=== PATIENT | male | born 1940 | race Two or more races ===

== ENCOUNTER 2020-05-13 17:53 | Inpatient (IN) | payer MEDICARE ==
[~2020-05-13] VITALS: Ht 180.3 cm; Wt 84.5 kg
[2020-05-13] MEDS ORDERED: SODIUM CHLORIDE 0.9% 1000ML BAG (SEPSIS BOLUS) IV ONE (18:30)
[2020-05-13 18:52] LABS: HEMATOCRIT. 39.2 % (42.0-52.0); HEMOGLOBIN. 13.2 g/dL (14.0-18.0); MEAN CORPUSCULAR HEMOGLOBIN 30.6 pg (28.0-32.0); MEAN CORPUSCULAR VOLUME 90.6 fL (80.0-94.0); MEAN PLATELET VOLUME 8.2 fl (7.4-10.4); PLATELET 284 x1000/uL (130-400); RED BLOOD CELL COUNT 4.32 mill/uL (4.7-6.1); RED CELL DISTRIBUTION WIDTH 14.5 % (11.6-14.6)
[2020-05-13 19:04] LABS: CHLORIDE 104 mEq/L (98-107)
[2020-05-13 19:27] LABS: PLATELET ESTIMATE NORMAL
[2020-05-13 20:39] LABS: CLARITY URINE CLOUDY (CLEAR); COLOR URINE DARK YELLOW (YELLOW); KETONES URINE 1+ (NEGATIVE); LEUKOCYTE ESTERASE URINE NEGATIVE (NEGATIVE); NITRITE URINE NEGATIVE (NEGATIVE); OCCULT BLOOD URINE NEGATIVE (NEGATIVE); PROTEIN URINE 2+ (NEGATIVE); SPECIFIC GRAVITY URINE 1.024 (1.005-1.030)
[2020-05-13] MEDS ORDERED: DEXAMETHASONE 4MG/ML 1ML VIAL IV NR (20:45)
[2020-05-13] MEDS ORDERED: NITROGLYCERIN 0.4MG TABLET SL SL PRN (21:30)
[2020-05-13] MEDS ORDERED: CLONIDINE 0.1MG TABLET PO PRN (21:30)
[2020-05-13] MEDS ORDERED: DOCUSATE SODIUM 100MG CAPSULE PO PRN (21:30)
[2020-05-13] MEDS ORDERED: TRAMADOL 50MG TABLET PO PRN (21:30)
[2020-05-13] MEDS ORDERED: ACETAMINOPHEN 325MG TABLET PO PRN ×2 (21:30)
[2020-05-13] MEDS ORDERED: MAGNESIUM/ALUMINUM HYDROXIDE/SIMETHICONE 30ML UDC PO PRN (21:30)
[2020-05-13] MEDS ORDERED: GUAIFENESIN 200MG/10ML SUGAR FREE UDC PO PRN (21:30)
[2020-05-13] MEDS ORDERED: ZOLPIDEM TARTRATE 5MG TABLET PO PRN (21:30)
[2020-05-13] MEDS ORDERED: ALBUTEROL 6.7GM HFA INHALER ORI PRN (21:30)
[2020-05-13] MEDS ORDERED: ONDANSETRON HCL 4MG/2ML INJ IV PRN (21:30)
[2020-05-13 21:49] LABS: TOTAL IRON BINDING CAPACITY 189 ug/dL (250-450)
[2020-05-13] MEDS ORDERED: AZITHROMYCIN 500 MG in DEXT 5% WATER 250 ML IV SCH (22:00)
[2020-05-13] MEDS: FUROSEMIDE 40MG/4ML VIAL IVP SCH (22:01)
[2020-05-13 22:08] LABS: FOLIC ACID (FOLATE) SERUM 8.4 ng/mL (>5.38)
[2020-05-13] MEDS: GUAIFENESIN/DM 600MG/30MG ER TAB 12HR PO SCH (22:08)
[2020-05-13] MEDS ORDERED: CEFTRIAXONE 1,000 MG in DEXTROSE 5% WATER 50 ML IV SCH (23:00)
[2020-05-13 23:41] LABS: CREATINE KINASE 260 IU/L (39-308)
[2020-05-13 23:42] LABS: CREATINE KINASE MB FRACTION < 1.0 ng/mL (0.5-3.6)
[2020-05-14] MEDS ORDERED: IOHEXOL-300 100 ML BOTTLE ONE (05:24)
[2020-05-14 05:39] LABS: HEMATOCRIT. 39.3 % (42.0-52.0); HEMOGLOBIN. 13.1 g/dL (14.0-18.0); MEAN CORPUSCULAR HEMOGLOBIN 30.8 pg (28.0-32.0); MEAN CORPUSCULAR VOLUME 92.2 fL (80.0-94.0); MEAN PLATELET VOLUME 8.4 fl (7.4-10.4); PLATELET 274 x1000/uL (130-400); RED BLOOD CELL COUNT 4.26 mill/uL (4.7-6.1); RED CELL DISTRIBUTION WIDTH 14.7 % (11.6-14.6)
[2020-05-14 05:51] LABS: CHLORIDE 103 mEq/L (98-107)
[2020-05-14 06:02] LABS: CREATINE KINASE MB FRACTION < 1.0 ng/mL (0.5-3.6); LDL CHOLESTEROL 52 mg/dL (5-100); PHOSPHORUS 4.2 mg/dL (2.5-4.9)
[2020-05-14 06:03] LABS: CREATINE KINASE 223 IU/L (39-308); HDL CHOLESTEROL 53 mg/dL (40-59)
[2020-05-14] MEDS: BLOOD SUGAR DIAGNOSTIC STRIP TEST SCH ×4 (07:30→21:24)
[2020-05-14] MEDS: INSULIN LISPRO 100 UNITS/ML SUBCUT SCH ×4 (07:35→23:06)
[2020-05-14] MEDS: SPIRONOLACTONE 25MG TABLET PO SCH ×2 (09:00→23:02)
[2020-05-14] MEDS: FAMOTIDINE 20MG TABLET PO SCH ×2 (09:56→23:01)
[2020-05-14] MEDS: ZINC SULFATE 220 MG ( 50 ) CAPSULE PO SCH (09:56)
[2020-05-14] MEDS: ASCORBIC ACID 500 MG TABLET PO SCH ×2 (09:56→23:02)
[2020-05-14] MEDS: FUROSEMIDE 40MG/4ML VIAL IVP SCH ×2 (09:56→23:02)
[2020-05-14] MEDS: ASPIRIN 81MG EC TABLET PO SCH (09:56)
[2020-05-14] MEDS: GUAIFENESIN/DM 600MG/30MG ER TAB 12HR PO SCH ×2 (09:56→23:01)
[2020-05-14 13:02] LABS: PLATELET ESTIMATE NORMAL
[2020-05-14] MEDS ORDERED: AZITHROMYCIN 500 MG in DEXT 5% WATER 250 ML IV SCH (15:30)
[2020-05-14] MEDS: CEFTRIAXONE 1,000 MG in DEXTROSE 5% WATER 50 ML IV SCH (16:03)
[2020-05-14 21:36] VITALS: BP 160/70
[2020-05-14] MEDS ORDERED: T3 PO (22:16)
[2020-05-14] MEDS ORDERED: CEFD300C3 MT (22:18)
[2020-05-14] MEDS: ENOXAPARIN 40MG/0.4ML SYR SUBCUT SCH (23:04)
[2020-05-14 23:32] VITALS: BP 160/70
[2020-05-15] VITALS (21 sets, daily range): BP systolic 132–179; BP diastolic 68–95
[2020-05-15] MEDS: INSULIN LISPRO 100 UNITS/ML SUBCUT SCH ×4 (05:58→22:20)
[2020-05-15] MEDS: BLOOD SUGAR DIAGNOSTIC STRIP TEST SCH ×4 (06:20→21:00)
[2020-05-15] MEDS: FAMOTIDINE 20MG TABLET PO SCH ×2 (09:00→22:16)
[2020-05-15] MEDS: SPIRONOLACTONE 25MG TABLET PO SCH ×2 (09:00→22:19)
[2020-05-15] MEDS: FUROSEMIDE 40MG/4ML VIAL IVP SCH ×2 (09:00→22:15)
[2020-05-15] MEDS: ZINC SULFATE 220 MG ( 50 ) CAPSULE PO SCH (09:00)
[2020-05-15] MEDS: ASPIRIN 81MG EC TABLET PO SCH (09:00)
[2020-05-15] MEDS: DEXAMETHASONE 10 MG/ML VIAL IV SCH (09:00)
[2020-05-15] MEDS: GUAIFENESIN/DM 600MG/30MG ER TAB 12HR PO SCH (09:00)
[2020-05-15] MEDS: ASCORBIC ACID 500 MG TABLET PO SCH ×2 (09:00→22:16)
[2020-05-15 10:39] LABS: BG BASE EXCESS 0.4 mmol/L (-2.0-2.0); BG CARBOXYHEMOGLOBIN 0.1 % (0.5-1.5); BG DEOXYHEMOGLOBIN 8.7 % (0.0-5.0); BG FRACTION INSPIRED OXYGEN 99.8; BG METHEMOGLOBIN 0.3 % (0.0-1.5); BG OXYGEN SATURATION 91.3 % (92.0-98.5); BG OXYHEMOGLOBIN 90.9 % (94.0-97.0); BG PCO2 35.7 mmHg (35.0-45.0); BG PH 7.445 (7.350-7.450); BG PO2 59.2 mmHg (75.0-100.0); BG SAMPLE SITE LEFT RADIAL; BG TOTAL HEMOGLOBIN 14.4 g/dL (12.0-18.0); BG VENT MODE MASK - NRB
[2020-05-15] MEDS: DOXYCYCLINE HYCLATE 100MG CAPSULE PO SCH (22:17)
[2020-05-15] MEDS: ENOXAPARIN 40MG/0.4ML SYR SUBCUT SCH (22:21)
[2020-05-16] VITALS (29 sets, daily range): BP systolic 136–165; BP diastolic 59–83
[2020-05-16] MEDS: CEFTRIAXONE 1,000 MG in DEXTROSE 5% WATER 50 ML IV SCH (00:24)
[2020-05-16] MEDS: GUAIFENESIN/DM 600MG/30MG ER TAB 12HR PO SCH ×3 (00:24→21:40)
[2020-05-16] MEDS: BLOOD SUGAR DIAGNOSTIC STRIP TEST SCH ×4 (06:06→21:41)
[2020-05-16] MEDS: INSULIN LISPRO 100 UNITS/ML SUBCUT SCH ×4 (06:12→21:42)
[2020-05-16] MEDS: ALBUTEROL 6.7GM HFA INHALER ORI SCH ×3 (09:00→21:00)
[2020-05-16] MEDS: ZINC SULFATE 220 MG ( 50 ) CAPSULE PO SCH (09:13)
[2020-05-16] MEDS: FUROSEMIDE 40MG/4ML VIAL IVP SCH ×2 (09:13→21:40)
[2020-05-16] MEDS: DEXAMETHASONE 10 MG/ML VIAL IV SCH (09:13)
[2020-05-16] MEDS: ASCORBIC ACID 500 MG TABLET PO SCH ×2 (09:14→21:41)
[2020-05-16] MEDS: SPIRONOLACTONE 25MG TABLET PO SCH ×2 (09:14→21:40)
[2020-05-16] MEDS: CHOLECALCIFEROL (D3) 1000 UNIT TABLET PO SCH (09:14)
[2020-05-16] MEDS: FAMOTIDINE 20MG TABLET PO SCH ×2 (09:14→21:41)
[2020-05-16] MEDS: ASPIRIN 81MG EC TABLET PO SCH (09:14)
[2020-05-16] MEDS: DOXYCYCLINE HYCLATE 100MG CAPSULE PO SCH ×2 (09:16→21:41)
[2020-05-16 09:24] LABS: BG BASE EXCESS 2.1 mmol/L (-2.0-2.0); BG CARBOXYHEMOGLOBIN 0.7 % (0.5-1.5); BG DEOXYHEMOGLOBIN 5.9 % (0.0-5.0); BG FRACTION INSPIRED OXYGEN 100; BG METHEMOGLOBIN 0.5 % (0.0-1.5); BG OXYHEMOGLOBIN 92.9 % (94.0-97.0); BG PCO2 38.4 mmHg (35.0-45.0); BG PH 7.449 (7.350-7.450); BG PO2 67.2 mmHg (75.0-100.0); BG TOTAL HEMOGLOBIN 15.4 g/dL (12.0-18.0); BG VENT MODE MASK - NRB
[2020-05-16] MEDS: ENOXAPARIN 40MG/0.4ML SYR SUBCUT SCH (21:44)
[2020-05-17] VITALS (23 sets, daily range): BP systolic 118–159; BP diastolic 56–79
[2020-05-17 05:36] LABS: CHLORIDE 107 mEq/L (98-107)
[2020-05-17 05:37] LABS: HEMOGLOBIN. 14.5 g/dL (14.0-18.0); MEAN CORPUSCULAR HEMOGLOBIN 29.9 pg (28.0-32.0); MEAN CORPUSCULAR VOLUME 91.1 fL (80.0-94.0); MEAN PLATELET VOLUME 7.8 fl (7.4-10.4); PLATELET 492 x1000/uL (130-400); RED BLOOD CELL COUNT 4.83 mill/uL (4.7-6.1); RED CELL DISTRIBUTION WIDTH 14.6 % (11.6-14.6)
[2020-05-17] MEDS: BLOOD SUGAR DIAGNOSTIC STRIP TEST SCH ×4 (06:06→21:48)
[2020-05-17] MEDS: INSULIN LISPRO 100 UNITS/ML SUBCUT SCH ×4 (06:08→22:46)
[2020-05-17 08:45] LABS: PLATELET ESTIMATE INCREASED
[2020-05-17] MEDS: FAMOTIDINE 20MG TABLET PO SCH ×2 (09:00→22:45)
[2020-05-17 09:34] LABS: BG BASE EXCESS 3.3 mmol/L (-2.0-2.0); BG CARBOXYHEMOGLOBIN 0.4 % (0.5-1.5); BG DEOXYHEMOGLOBIN 6.4 % (0.0-5.0); BG FRACTION INSPIRED OXYGEN 100; BG HCO3 ACT 26.8 mmol/L (22.0-26.0); BG METHEMOGLOBIN 0.1 % (0.0-1.5); BG OXYGEN SATURATION 93.6 % (92.0-98.5); BG OXYHEMOGLOBIN 93.1 % (94.0-97.0); BG PH 7.477 (7.350-7.450); BG PO2 67.1 mmHg (75.0-100.0); BG SAMPLE SITE RIGHT RADIAL; BG TOTAL HEMOGLOBIN 14.7 g/dL (12.0-18.0); BG VENT MODE MASK - NRB
[2020-05-17] MEDS: CHOLECALCIFEROL (D3) 1000 UNIT TABLET PO SCH (09:58)
[2020-05-17] MEDS: GUAIFENESIN/DM 600MG/30MG ER TAB 12HR PO SCH ×2 (09:58→22:44)
[2020-05-17] MEDS: DEXAMETHASONE 10 MG/ML VIAL IV SCH (09:58)
[2020-05-17] MEDS: FUROSEMIDE 40MG/4ML VIAL IVP SCH ×2 (09:58→22:44)
[2020-05-17] MEDS: ZINC SULFATE 220 MG ( 50 ) CAPSULE PO SCH (09:58)
[2020-05-17] MEDS: DOXYCYCLINE HYCLATE 100MG CAPSULE PO SCH ×2 (09:58→22:45)
[2020-05-17] MEDS: ASCORBIC ACID 500 MG TABLET PO SCH ×2 (09:58→22:44)
[2020-05-17] MEDS: ASPIRIN 81MG EC TABLET PO SCH (09:58)
[2020-05-17] MEDS: SPIRONOLACTONE 25MG TABLET PO SCH ×2 (09:59→22:44)
[2020-05-17] MEDS: ALBUTEROL 6.7GM HFA INHALER ORI SCH (21:00)
[2020-05-17] MEDS: ENOXAPARIN 40MG/0.4ML SYR SUBCUT SCH (22:49)
[2020-05-18] VITALS: BP 139/66
[2020-05-18] MEDS ORDERED: INSULIN LISPRO 100 UNITS/ML SUBCUT NR (01:00)
[2020-05-18 04:00] VITALS: BP 122/58
[2020-05-18] MEDS: ALBUTEROL 6.7GM HFA INHALER ORI SCH ×4 (04:38→21:33)
[2020-05-18] MEDS: BLOOD SUGAR DIAGNOSTIC STRIP TEST SCH ×4 (05:59→21:33)
[2020-05-18] MEDS: INSULIN LISPRO 100 UNITS/ML SUBCUT SCH ×4 (07:10→21:42)
[2020-05-18 08:00] VITALS: BP 173/84
[2020-05-18] MEDS: FUROSEMIDE 40MG/4ML VIAL IVP SCH ×2 (08:42→21:32)
[2020-05-18] MEDS: ZINC SULFATE 220 MG ( 50 ) CAPSULE PO SCH (08:42)
[2020-05-18] MEDS: ASPIRIN 81MG EC TABLET PO SCH (08:42)
[2020-05-18] MEDS: DEXAMETHASONE 10 MG/ML VIAL IV SCH (08:42)
[2020-05-18] MEDS: DOXYCYCLINE HYCLATE 100MG CAPSULE PO SCH ×2 (08:42→21:33)
[2020-05-18] MEDS: FAMOTIDINE 20MG TABLET PO SCH ×2 (08:42→21:33)
[2020-05-18] MEDS: SPIRONOLACTONE 25MG TABLET PO SCH ×2 (08:43→21:36)
[2020-05-18] MEDS: CHOLECALCIFEROL (D3) 1000 UNIT TABLET PO SCH (08:43)
[2020-05-18] MEDS: ASCORBIC ACID 500 MG TABLET PO SCH ×2 (08:43→21:33)
[2020-05-18] MEDS: GUAIFENESIN/DM 600MG/30MG ER TAB 12HR PO SCH ×2 (08:43→21:33)
[2020-05-18 12:00] VITALS: BP 131/65
[2020-05-18 12:53] LABS: BG BASE EXCESS 3.2 mmol/L (-2.0-2.0); BG CARBOXYHEMOGLOBIN 0.3 % (0.5-1.5); BG DEOXYHEMOGLOBIN 4.4 % (0.0-5.0); BG HCO3 ACT 26.9 mmol/L (22.0-26.0); BG METHEMOGLOBIN 0.3 % (0.0-1.5); BG OXYGEN SATURATION 95.6 % (92.0-98.5); BG PH 7.468 (7.350-7.450); BG PO2 79.8 mmHg (75.0-100.0); BG SAMPLE SITE RIGHT BRACHIAL; BG TOTAL HEMOGLOBIN 14.9 g/dL (12.0-18.0); BG VENT MODE MASK - NRB
[2020-05-18 16:00] VITALS: BP 138/61
[2020-05-18 20:00] VITALS: BP 131/67
[2020-05-18] MEDS: ENOXAPARIN 40MG/0.4ML SYR SUBCUT SCH (21:34)
[2020-05-19] VITALS: BP 131/63
[2020-05-19] MEDS: ALBUTEROL 6.7GM HFA INHALER ORI SCH ×3 (03:13→22:01)
[2020-05-19 04:00] VITALS: BP 131/59
[2020-05-19] MEDS: BLOOD SUGAR DIAGNOSTIC STRIP TEST SCH ×4 (06:09→21:00)
[2020-05-19 08:00] VITALS: BP 138/77
[2020-05-19] MEDS: GUAIFENESIN/DM 600MG/30MG ER TAB 12HR PO SCH ×2 (09:44→22:00)
[2020-05-19] MEDS: SPIRONOLACTONE 25MG TABLET PO SCH ×2 (09:44→22:00)
[2020-05-19] MEDS: ZINC SULFATE 220 MG ( 50 ) CAPSULE PO SCH (09:44)
[2020-05-19] MEDS: FAMOTIDINE 20MG TABLET PO SCH ×2 (09:45→22:00)
[2020-05-19] MEDS: CHOLECALCIFEROL (D3) 1000 UNIT TABLET PO SCH (09:45)
[2020-05-19] MEDS: DOXYCYCLINE HYCLATE 100MG CAPSULE PO SCH (09:45)
[2020-05-19] MEDS: ASCORBIC ACID 500 MG TABLET PO SCH ×2 (09:45→22:01)
[2020-05-19] MEDS: DEXAMETHASONE 10 MG/ML VIAL IV SCH (09:46)
[2020-05-19] MEDS: FUROSEMIDE 40MG/4ML VIAL IVP SCH ×2 (09:46→21:59)
[2020-05-19] MEDS: INSULIN LISPRO 100 UNITS/ML SUBCUT SCH ×4 (10:10→22:04)
[2020-05-19] MEDS: ASPIRIN 81MG EC TABLET PO SCH (10:12)
[2020-05-19 11:06] LABS: BG BASE EXCESS 3.6 mmol/L (-2.0-2.0); BG CARBOXYHEMOGLOBIN 0.4 % (0.5-1.5); BG DEOXYHEMOGLOBIN 7.8 % (0.0-5.0); BG HCO3 ACT 26.7 mmol/L (22.0-26.0); BG METHEMOGLOBIN 0.3 % (0.0-1.5); BG OXYGEN SATURATION 92.1 % (92.0-98.5); BG OXYHEMOGLOBIN 91.5 % (94.0-97.0); BG PCO2 35.7 mmHg (35.0-45.0); BG PH 7.491 (7.350-7.450); BG SAMPLE SITE RIGHT RADIAL; BG VENT MODE MASK - NRB
[2020-05-19 12:00] VITALS: BP 130/59
[2020-05-19 16:00] VITALS: BP 135/68
[2020-05-19] MEDS: ENOXAPARIN 80MG/0.8ML SYR SUBCUT SCH (17:24)
[2020-05-19 20:00] VITALS: BP 146/89
[2020-05-20] VITALS (8 sets, daily range): BP systolic 118–132; BP diastolic 68–78
[2020-05-20] MEDS: ALBUTEROL 6.7GM HFA INHALER ORI SCH ×4 (02:09→21:00)
[2020-05-20] MEDS: BLOOD SUGAR DIAGNOSTIC STRIP TEST SCH ×4 (06:50→21:41)
[2020-05-20 07:57] LABS: INR 1.2; PROTHROMBIN TIME 12.4 sec (9.6-11.0)
[2020-05-20] MEDS: GUAIFENESIN/DM 600MG/30MG ER TAB 12HR PO SCH ×2 (09:00→21:49)
[2020-05-20] MEDS: DEXAMETHASONE 10 MG/ML VIAL IV SCH (09:16)
[2020-05-20] MEDS: CHOLECALCIFEROL (D3) 1000 UNIT TABLET PO SCH (09:16)
[2020-05-20] MEDS: FUROSEMIDE 40MG/4ML VIAL IVP SCH ×2 (09:16→21:49)
[2020-05-20] MEDS: FAMOTIDINE 20MG TABLET PO SCH ×2 (09:16→21:49)
[2020-05-20] MEDS: ASCORBIC ACID 500 MG TABLET PO SCH ×2 (09:17→21:49)
[2020-05-20] MEDS: ENOXAPARIN 80MG/0.8ML SYR SUBCUT SCH ×2 (09:17→21:49)
[2020-05-20] MEDS: ZINC SULFATE 220 MG ( 50 ) CAPSULE PO SCH (09:17)
[2020-05-20] MEDS: SPIRONOLACTONE 25MG TABLET PO SCH ×2 (09:17→21:00)
[2020-05-20] MEDS: ASPIRIN 81MG EC TABLET PO SCH (09:17)
[2020-05-20] MEDS: INSULIN LISPRO 100 UNITS/ML SUBCUT SCH ×4 (09:18→21:57)
[2020-05-20 10:14] LABS: BG BASE EXCESS 0.8 mmol/L (-2.0-2.0); BG CARBOXYHEMOGLOBIN 0.4 % (0.5-1.5); BG FRACTION INSPIRED OXYGEN 100; BG HCO3 ACT 22.1 mmol/L (22.0-26.0); BG METHEMOGLOBIN 0.3 % (0.0-1.5); BG OXYGEN SATURATION 88.9 % (92.0-98.5); BG OXYHEMOGLOBIN 88.3 % (94.0-97.0); BG PCO2 27.7 mmHg (35.0-45.0); BG PH 7.519 (7.350-7.450); BG PO2 52.6 mmHg (75.0-100.0); BG SAMPLE SITE RIGHT RADIAL; BG TOTAL HEMOGLOBIN 16.8 g/dL (12.0-18.0); BG VENT MODE MASK - NRB
[2020-05-21 00:37] VITALS: BP 119/68
[2020-05-21 04:00] VITALS: BP 131/74
[2020-05-21] MEDS: ALBUTEROL 6.7GM HFA INHALER ORI SCH ×3 (04:38→15:24)
[2020-05-21] MEDS: BLOOD SUGAR DIAGNOSTIC STRIP TEST SCH ×4 (06:54→21:00)
[2020-05-21 07:22] LABS: BG BASE EXCESS -0.5 mmol/L (-2.0-2.0); BG CARBOXYHEMOGLOBIN 0.3 % (0.5-1.5); BG DEOXYHEMOGLOBIN 5.4 % (0.0-5.0); BG FRACTION INSPIRED OXYGEN 100; BG HCO3 ACT 20.8 mmol/L (22.0-26.0); BG METHEMOGLOBIN 0.3 % (0.0-1.5); BG OXYGEN SATURATION 94.6 % (92.0-98.5); BG PCO2 27.2 mmHg (35.0-45.0); BG PH 7.501 (7.350-7.450); BG PO2 71.3 mmHg (75.0-100.0); BG SAMPLE SITE RIGHT RADIAL; BG TOTAL HEMOGLOBIN 18.1 g/dL (12.0-18.0); BG VENT MODE MASK - NRB
[2020-05-21 08:00] VITALS: BP 98/62
[2020-05-21] MEDS: CHOLECALCIFEROL (D3) 1000 UNIT TABLET PO SCH (09:00)
[2020-05-21] MEDS: FAMOTIDINE 20MG TABLET PO SCH ×2 (09:00→21:00)
[2020-05-21] MEDS: ASPIRIN 81MG EC TABLET PO SCH (09:00)
[2020-05-21] MEDS: GUAIFENESIN/DM 600MG/30MG ER TAB 12HR PO SCH ×2 (09:00→21:00)
[2020-05-21] MEDS: ZINC SULFATE 220 MG ( 50 ) CAPSULE PO SCH (09:00)
[2020-05-21] MEDS: SPIRONOLACTONE 25MG TABLET PO SCH (09:00)
[2020-05-21] MEDS: ASCORBIC ACID 500 MG TABLET PO SCH ×2 (09:00→21:00)
[2020-05-21] MEDS: DEXAMETHASONE 10 MG/ML VIAL IV SCH (09:05)
[2020-05-21] MEDS: FUROSEMIDE 40MG/4ML VIAL IVP SCH (09:05)
[2020-05-21] MEDS: ENOXAPARIN 80MG/0.8ML SYR SUBCUT SCH (09:10)
[2020-05-21] MEDS: INSULIN LISPRO 100 UNITS/ML SUBCUT SCH ×4 (09:11→21:00)
[2020-05-21 10:11] LABS: HEMATOCRIT. 52.7 % (42.0-52.0); HEMOGLOBIN. 16.7 g/dL (14.0-18.0); MEAN CORPUSCULAR HEMOGLOBIN 29.6 pg (28.0-32.0); PLATELET 542 x1000/uL (130-400); RED BLOOD CELL COUNT 5.66 mill/uL (4.7-6.1); RED CELL DISTRIBUTION WIDTH 14.8 % (11.6-14.6)
[2020-05-21 10:14] LABS: MEAN CORPUSCULAR VOLUME 93.2 fL (80.0-94.0)
[2020-05-21 12:00] VITALS: BP 105/72
[2020-05-21 14:33] LABS: PLATELET ESTIMATE INCREASED
[2020-05-21 16:00] VITALS: BP 117/69
[2020-05-21 20:00] VITALS: BP 143/120
[2020-05-22] VITALS: BP 122/74
[2020-05-22] MEDS: ENOXAPARIN 80MG/0.8ML SYR SUBCUT SCH ×2 (00:06→09:44)
[2020-05-22 04:00] VITALS: BP 101/66
[2020-05-22] MEDS: BLOOD SUGAR DIAGNOSTIC STRIP TEST SCH ×4 (06:40→21:00)
[2020-05-22 07:58] LABS: HEMATOCRIT. 53.5 % (42.0-52.0); HEMOGLOBIN. 17.4 g/dL (14.0-18.0); MEAN CORPUSCULAR HEMOGLOBIN 30.3 pg (28.0-32.0); MEAN CORPUSCULAR VOLUME 93.2 fL (80.0-94.0); MEAN PLATELET VOLUME 10.7 fl (7.4-10.4); PLATELET 470 x1000/uL (130-400); RED BLOOD CELL COUNT 5.74 mill/uL (4.7-6.1)
[2020-05-22 08:00] VITALS: BP_SYST 132
[2020-05-22] MEDS: ASPIRIN 81MG EC TABLET PO SCH (09:43)
[2020-05-22] MEDS: ZINC SULFATE 220 MG ( 50 ) CAPSULE PO SCH (09:43)
[2020-05-22] MEDS: GUAIFENESIN/DM 600MG/30MG ER TAB 12HR PO SCH ×2 (09:43→21:00)
[2020-05-22] MEDS: CHOLECALCIFEROL (D3) 1000 UNIT TABLET PO SCH (09:43)
[2020-05-22] MEDS: DEXAMETHASONE 10 MG/ML VIAL IV SCH (09:44)
[2020-05-22] MEDS: FAMOTIDINE 20MG TABLET PO SCH ×2 (09:44→21:00)
[2020-05-22] MEDS: ASCORBIC ACID 500 MG TABLET PO SCH ×2 (09:44→21:00)
[2020-05-22] MEDS ORDERED: DEXTROSE 5% WATER 1,000 ML IV ONE (09:45)
[2020-05-22] MEDS: INSULIN LISPRO 100 UNITS/ML SUBCUT SCH ×4 (09:46→23:24)
[2020-05-22] MEDS: ALBUTEROL 6.7GM HFA INHALER ORI SCH ×3 (09:49→23:28)
[2020-05-22 11:51] LABS: NUCLEATED RED BLOOD CELLS 3 /100 WBC; PLATELET ESTIMATE INCREASED
[2020-05-22 12:00] VITALS: BP 103/59
[2020-05-22 15:33] LABS: CLARITY URINE TURBID (CLEAR); COLOR URINE DARK YELLOW (YELLOW); KETONES URINE NEGATIVE (NEGATIVE); LEUKOCYTE ESTERASE URINE 3+ (NEGATIVE); NITRITE URINE NEGATIVE (NEGATIVE); OCCULT BLOOD URINE 3+ (NEGATIVE); PROTEIN URINE 2+ (NEGATIVE)
[2020-05-22 16:03] VITALS: BP 113/81
[2020-05-22] MEDS ORDERED: PIPERACILLIN/TAZOBACTAM 2.25 G in DEXTROSE 5% WATER 50 ML IV SCH (17:15)
[2020-05-22 18:19] LABS: BG BASE EXCESS -0.7 mmol/L (-2.0-2.0); BG CARBOXYHEMOGLOBIN 0.7 % (0.5-1.5); BG DEOXYHEMOGLOBIN 3.8 % (0.0-5.0); BG FRACTION INSPIRED OXYGEN 100; BG HCO3 ACT 23.3 mmol/L (22.0-26.0); BG METHEMOGLOBIN 0.3 % (0.0-1.5); BG OXYGEN SATURATION 96.2 % (92.0-98.5); BG OXYHEMOGLOBIN 95.2 % (94.0-97.0); BG PCO2 37.1 mmHg (35.0-45.0); BG PH 7.416 (7.350-7.450); BG PO2 83.9 mmHg (75.0-100.0); BG SAMPLE SITE LEFT BRACHIAL; BG TOTAL HEMOGLOBIN 17.2 g/dL (12.0-18.0); BG VENT MODE MASK - NRB
[2020-05-22] MEDS: PIPERACILLIN/TAZOBACTAM 3.375 G in DEXT 5% WATER 100 ML IV SCH (18:59)
[2020-05-22 20:00] VITALS: BP 124/77
[2020-05-22] MEDS ORDERED: INSULIN LISPRO 100 UNITS/ML SUBCUT NR (23:00)
[2020-05-23] VITALS (21 sets, daily range): BP systolic 49–167; BP diastolic 19–110
[2020-05-23] MEDS: PIPERACILLIN/TAZOBACTAM 3.375 G in DEXT 5% WATER 100 ML IV SCH ×2 (01:45→09:02)
[2020-05-23] MEDS: ALBUTEROL 6.7GM HFA INHALER ORI SCH ×5 (02:26→21:00)
[2020-05-23] MEDS: BLOOD SUGAR DIAGNOSTIC STRIP TEST SCH ×3 (06:40→21:01)
[2020-05-23] MEDS: DEXTROSE 50% WATER 50ML SYRINGE IV PRN (06:40)
[2020-05-23] MEDS: GUAIFENESIN/DM 600MG/30MG ER TAB 12HR PO SCH ×2 (08:34→21:00)
[2020-05-23] MEDS: FAMOTIDINE 20MG TABLET PO SCH ×2 (08:34→21:00)
[2020-05-23] MEDS: ASCORBIC ACID 500 MG TABLET PO SCH ×2 (08:34→21:00)
[2020-05-23] MEDS: ASPIRIN 81MG EC TABLET PO SCH (08:34)
[2020-05-23] MEDS: ZINC SULFATE 220 MG ( 50 ) CAPSULE PO SCH (08:34)
[2020-05-23] MEDS: CHOLECALCIFEROL (D3) 1000 UNIT TABLET PO SCH (08:34)
[2020-05-23] MEDS: DEXAMETHASONE 10 MG/ML VIAL IV SCH (08:35)
[2020-05-23] MEDS: INSULIN LISPRO 100 UNITS/ML SUBCUT SCH ×4 (08:36→21:00)
[2020-05-23] MEDS ORDERED: ENOXAPARIN 80MG/0.8ML SYR SUBCUT SCH (09:00)
[2020-05-23 09:27] LABS: BG BASE EXCESS 0.3 mmol/L (-2.0-2.0); BG CARBOXYHEMOGLOBIN 0.3 % (0.5-1.5); BG DEOXYHEMOGLOBIN 2.1 % (0.0-5.0); BG FRACTION INSPIRED OXYGEN 100; BG HCO3 ACT 23.9 mmol/L (22.0-26.0); BG METHEMOGLOBIN 0.1 % (0.0-1.5); BG OXYGEN SATURATION 97.9 % (92.0-98.5); BG OXYHEMOGLOBIN 97.5 % (94.0-97.0); BG PCO2 35.9 mmHg (35.0-45.0); BG PH 7.441 (7.350-7.450); BG PO2 112.6 mmHg (75.0-100.0); BG SAMPLE SITE RIGHT RADIAL; BG TOTAL HEMOGLOBIN 17.7 g/dL (12.0-18.0); BG VENT MODE MASK - NRB
[2020-05-23 09:47] LABS: HEMATOCRIT 51.8 % (42.0-52.0); HEMOGLOBIN 16.8 g/dL (14.0-18.0); MEAN CORPUSCULAR HEMOGLOBIN 29.9 pg (28.0-32.0); MEAN CORPUSCULAR VOLUME 92.4 fL (80.0-94.0); PLATELET 459 x1000/uL (130-400); RED BLOOD CELL COUNT 5.61 mill/uL (4.7-6.1); RED CELL DISTRIBUTION WIDTH 15.2 % (11.6-14.6)
[2020-05-23 15:05] LABS: BG BASE EXCESS -0.8 mmol/L (-2.0-2.0); BG CARBOXYHEMOGLOBIN 0.3 % (0.5-1.5); BG DEOXYHEMOGLOBIN 1.7 % (0.0-5.0); BG FRACTION INSPIRED OXYGEN 99.9; BG HCO3 ACT 22.2 mmol/L (22.0-26.0); BG METHEMOGLOBIN 0.5 % (0.0-1.5); BG OXYGEN SATURATION 98.3 % (92.0-98.5); BG OXYHEMOGLOBIN 97.5 % (94.0-97.0); BG PCO2 33.1 mmHg (35.0-45.0); BG PH 7.445 (7.350-7.450); BG PO2 127.1 mmHg (75.0-100.0); BG SAMPLE SITE RIGHT BRACHIAL; BG TOTAL HEMOGLOBIN 18.2 g/dL (12.0-18.0); BG VENT MODE MASK - NRB
[2020-05-23] MEDS ORDERED: FLUCONAZOLE 200 MG/100ML BAG 100 ML IV SCH (16:00)
[2020-05-23] MEDS ORDERED: PROPOFOL 10MG/ML 100ML 100 ML IV PRN (17:00)
[2020-05-23 18:49] LABS: BG BASE EXCESS -5.8 mmol/L (-2.0-2.0); BG CARBOXYHEMOGLOBIN 0.3 % (0.5-1.5); BG DEOXYHEMOGLOBIN 0.5 % (0.0-5.0); BG FRACTION INSPIRED OXYGEN 100; BG HCO3 ACT 19.4 mmol/L (22.0-26.0); BG METHEMOGLOBIN 0.6 % (0.0-1.5); BG OXYGEN SATURATION 99.5 % (92.0-98.5); BG OXYHEMOGLOBIN 98.6 % (94.0-97.0); BG PCO2 37.7 mmHg (35.0-45.0); BG PH 7.329 (7.350-7.450); BG PO2 315.1 mmHg (75.0-100.0); BG SAMPLE SITE RIGHT RADIAL; BG TOTAL HEMOGLOBIN 17.3 g/dL (12.0-18.0); BG VENT MODE VENT - AC
[2020-05-23] MEDS: PHENYLEPHRINE 100 MG in DEXT 5% WATER 240 ML IV PRN (19:00)
[2020-05-23] MEDS ORDERED: NOREPINEPHRINE 8 MG in DEXT 5% WATER 242 ML IV PRN (20:45)
[2020-05-23] MEDS ORDERED: AMIODARONE HCL 900 MG in DEXT 5% WATER 482 ML IV SCH (21:00)
[2020-05-23] MEDS: PIPERACILLIN/TAZOBACTAM 2.25 G in DEXTROSE 5% WATER 50 ML IV SCH (21:05)
[2020-05-23 21:17] LABS: BG CARBOXYHEMOGLOBIN 0.3 % (0.5-1.5); BG DEOXYHEMOGLOBIN 0.8 % (0.0-5.0); BG FRACTION INSPIRED OXYGEN 100; BG METHEMOGLOBIN 0.6 % (0.0-1.5); BG OXYGEN SATURATION 99.2 % (92.0-98.5); BG OXYHEMOGLOBIN 98.3 % (94.0-97.0); BG PCO2 44.6 mmHg (35.0-45.0); BG PH 6.924 (7.350-7.450); BG PO2 390.3 mmHg (75.0-100.0); BG SAMPLE SITE LEFT RADIAL; BG VENT MODE VENT - AC
[2020-05-23 22:10] LABS: HEMATOCRIT. 45.7 % (42.0-52.0); HEMOGLOBIN. 13.3 g/dL (14.0-18.0); MEAN CORPUSCULAR HEMOGLOBIN 29.5 pg (28.0-32.0); MEAN CORPUSCULAR VOLUME 101.3 fL (80.0-94.0); MEAN PLATELET VOLUME 10.5 fl (7.4-10.4); PLATELET 252 x1000/uL (130-400); RED BLOOD CELL COUNT 4.51 mill/uL (4.7-6.1); RED CELL DISTRIBUTION WIDTH 16.4 % (11.6-14.6)
[2020-05-23 22:16] LABS: CHLORIDE 130 mEq/L (98-107)
[2020-05-23] MEDS ORDERED: SODIUM BICARBONATE 8.4% 1 MEQ/ML 50ML SYR IV SCH (23:15)
[2020-05-23 23:19] LABS: PLATELET ESTIMATE NORMAL
[2020-05-23] MEDS: NOREPINEPHRINE 32 MG in DEXT 5% WATER 218 ML IV PRN (23:36)
[2020-05-24] VITALS (30 sets, daily range): BP systolic 37–141; BP diastolic 17–62
[2020-05-24] MEDS: IPRATROPIUM/ALBUTEROL 0.5-3(2.5)MG/3ML NEB HHN SCH ×2 (00:18→08:13)
[2020-05-24] MEDS: PIPERACILLIN/TAZOBACTAM 2.25 G in DEXTROSE 5% WATER 50 ML IV SCH ×2 (00:20→12:43)
[2020-05-24] MEDS: VASOPRESSIN 20 UNIT in SODIUM CHLORIDE 0.9% 99 ML IV PRN ×2 (01:07→08:57)
[2020-05-24] MEDS: PHENYLEPHRINE 100 MG in DEXT 5% WATER 240 ML IV PRN ×2 (01:14→09:30)
[2020-05-24] MEDS ORDERED: ALBUTEROL 6.7GM HFA INHALER INH SCH (03:00)
[2020-05-24] MEDS ORDERED: ALBUTEROL 6.7GM HFA INHALER INH PRN (03:30)
[2020-05-24 05:39] LABS: HEMATOCRIT. 55.3 % (42.0-52.0); HEMOGLOBIN. 16.4 g/dL (14.0-18.0); MEAN CORPUSCULAR HEMOGLOBIN 29.4 pg (28.0-32.0); MEAN CORPUSCULAR VOLUME 98.9 fL (80.0-94.0); RED BLOOD CELL COUNT 5.59 mill/uL (4.7-6.1); RED CELL DISTRIBUTION WIDTH 16.9 % (11.6-14.6)
[2020-05-24] MEDS: NOREPINEPHRINE 32 MG in DEXT 5% WATER 218 ML IV PRN ×2 (05:56→13:59)
[2020-05-24] MEDS: INSULIN LISPRO 100 UNITS/ML SUBCUT SCH ×2 (07:00→11:51)
[2020-05-24 07:40] LABS: NUCLEATED RED BLOOD CELLS 1 /100 WBC
[2020-05-24 07:42] LABS: PLATELET ESTIMATE NORMAL
[2020-05-24] MEDS: GUAIFENESIN/DM 600MG/30MG ER TAB 12HR PO SCH (08:49)
[2020-05-24] MEDS: ASPIRIN 81MG EC TABLET PO SCH (08:57)
[2020-05-24] MEDS: DEXAMETHASONE 10 MG/ML VIAL IV SCH (08:57)
[2020-05-24] MEDS: ZINC SULFATE 220 MG ( 50 ) CAPSULE PO SCH (08:57)
[2020-05-24] MEDS: FAMOTIDINE 20MG TABLET PO SCH (08:57)
[2020-05-24] MEDS: CHOLECALCIFEROL (D3) 1000 UNIT TABLET PO SCH (08:57)
[2020-05-24] MEDS: ASCORBIC ACID 500 MG TABLET PO SCH (08:57)
[2020-05-24 09:39] LABS: BG BASE EXCESS -28.1 mmol/L (-2.0-2.0); BG CARBOXYHEMOGLOBIN 0.1 % (0.5-1.5); BG DEOXYHEMOGLOBIN 3.6 % (0.0-5.0); BG FRACTION INSPIRED OXYGEN 70; BG HCO3 ACT 4.9 mmol/L (22.0-26.0); BG METHEMOGLOBIN 0.6 % (0.0-1.5); BG OXYGEN SATURATION 96.4 % (92.0-98.5); BG OXYHEMOGLOBIN 95.7 % (94.0-97.0); BG PCO2 27.6 mmHg (35.0-45.0); BG PH 6.868 (7.350-7.450); BG PO2 129.5 mmHg (75.0-100.0); BG SAMPLE SITE RIGHT RADIAL; BG TOTAL HEMOGLOBIN 16.7 g/dL (12.0-18.0); BG TOTAL RESPIRATORY RATE 38 b/min; BG VENT MODE VENT - AC
[2020-05-24] MEDS ORDERED: SODIUM BICARBONATE 150 MEQ in DEXTROSE 5% WATER 950 ML IV SCH (09:45)
[2020-05-24] MEDS ORDERED: SODIUM BICARBONATE 150 MEQ in DEXTROSE 5% WATER 1,000 ML IV SCH (10:45)
[2020-05-24] MEDS: BLOOD SUGAR DIAGNOSTIC STRIP TEST SCH (11:51)
[2020-05-24] MEDS: DEXTROSE 50% WATER 50ML SYRINGE IV PRN (11:54)
[2020-05-24] MEDS ORDERED: DOPAMINE 800MG PREMIX (DOUBLE) 250 ML IV PRN (14:00)
[2020-05-24] MEDS ORDERED: MORPHINE SULFATE 2 MG/ML CPJ (NOT FOR IM USE) IV PRN (14:30)
[2020-05-24] MEDS ORDERED: ATROPINE SULFATE 1MG/10ML SYR ONE (15:00)
[2020-05-24] MEDS ORDERED: EPINEPHRINE 0.1MG/ML (1:10,000) 10ML SYR ONE ×2 (15:00→16:00)
[2020-05-24] MEDS ORDERED: CALCIUM CHLORIDE 1GM/10ML SYR IV ONE ×2 (15:00→16:00)
[2020-05-24] MEDS ORDERED: SODIUM BICARBONATE 8.4% 1 MEQ/ML 50ML SYR IV ONE ×2 (15:00→16:00)
[2020-05-25] MEDS ORDERED: DEXAMETHASONE 10 MG/ML VIAL IV SCH (09:00)
== END 2020-05-24 18:27 | disposition expired | DRG 871 ==
LOC: ER 17:53 → MICUSO 20:40 → EDBEDREQ 21:01 → EDBEDREQTM 21:01 → 8WST 05-14 20:36 → MICUSO 05-15 15:35 → 7EST 05-17 13:24 → MICUSO 05-23 18:48
PROVIDERS: ADMIT Internal Medicine; ATTEND Internal Medicine
PROC: 05HY33Z Insertion of Infusion Device into Upper Vein, Percutaneous Approach (ICD-10-PCS; 2020-05-13)
PROC: B54MZZA Ultrasonography of Right Upper Extremity Veins, Guidance (ICD-10-PCS; 2020-05-13)
PROC: 5A1935Z Respiratory Ventilation, Less than 24 Consecutive Hours (ICD-10-PCS; principal; 2020-05-15)
PROC: 5A2204Z Restoration of Cardiac Rhythm, Single (ICD-10-PCS; 2020-05-15)
PROC: 5A09357 Assistance with Respiratory Ventilation, Less than 24 Consecutive Hours, Continuous Positive Airway Pressure (ICD-10-PCS; 2020-05-15)
PROC: 0BH17EZ Insertion of Endotracheal Airway into Trachea, Via Natural or Artificial Opening (ICD-10-PCS; 2020-05-23)
DX: A41.89 Other specified sepsis (principal); U07.1 COVID-19; E43 Unspecified severe protein-calorie malnutrition; G92 Toxic encephalopathy; J12.89 Other viral pneumonia; I21.4 Non-ST elevation (NSTEMI) myocardial infarction; K72.00 Acute and subacute hepatic failure without coma; J96.01 Acute respiratory failure with hypoxia; E87.0 Hyperosmolality and hypernatremia; J81.1 Chronic pulmonary edema; N17.9 Acute kidney failure, unspecified; N39.0 Urinary tract infection, site not specified; R57.9 Shock, unspecified; D68.69 Other thrombophilia; E87.2 Acidosis; E83.51 Hypocalcemia; D63.8 Anemia in other chronic diseases classified elsewhere; B97.89 Other viral agents as the cause of diseases classified elsewhere; E11.65 Type 2 diabetes mellitus with hyperglycemia; I10 Essential (primary) hypertension; D72.810 Lymphocytopenia; I46.2 Cardiac arrest due to underlying cardiac condition; I49.01 Ventricular fibrillation; Z66 Do not resuscitate; R65.20 Severe sepsis without septic shock; Z68.26 Body mass index [BMI] 26.0-26.9, adult; Z79.4 Long term (current) use of insulin; Z79.899 Other long term (current) drug therapy
CPT/HCPCS: 36415; 36600; 71045; 71270; 76937; 80048; 80053; 80061; 80076; 81003; 82375; 82550; 82553; 82607; 82728; 82746; 82805; 82962; 83036; 83540; 83550; 83605; 83615; 83735; 83880; 84100; 84145; 84478; 84484; 85025; 85027; 85379; 86140; 86850; 86900; 87106; 87635; 87804; 93005; 93970; 96365; 99291; C1725; J0282; J0456; J0461; J0696; J1100; J1450; J1650; J1815; J1940; J2270; J2370; J2543; J2704; J3490; J7030; J7040; J7050; J7060; J7070; Q9967